=== PATIENT | female | born 1970 ===

== ENCOUNTER 2021-01-17 16:09 | Emergency (ER) | payer OTHER ==
[~2021-01-17] VITALS: Ht 162.6 cm; Wt 88.5 kg
[2021-01-17] MEDS ORDERED: SYMBICORT 16010.2 GM (17:04)
[2021-01-17] MEDS ORDERED: CLARITIN5 MG/5 ML (17:04)
== END 2021-01-17 22:11 | disposition home or self-care (01) ==
LOC: ER 16:09
DX: B34.9 Viral infection, unspecified (principal); Z03.818 Encounter for observation for suspected exposure to other biological agents ruled out